=== PATIENT | male | born 1965 | race African-American/Black ===

== ENCOUNTER 2024-10-04 19:37 | Inpatient (IN) ==
[2024-10-04 20:05] LABS: iSTAT Blood Urea Nitrogen < 3 mg/dl (7-18); iSTAT Carbon Dioxide 21 mmol/L (24-31); iSTAT Chloride 97 mmol/L (101-112); iSTAT Creatinine 0.9 mg/dl (0.6-1.3); iSTAT Glucose 370 mg/dl (70-99); iSTAT Hematocrit 36 % (42-52); iSTAT Hemoglobin 12.2 g/dl (14.0-18.0); iSTAT Ionized Calcium 1.07 mmol/l (1.12-1.32); iSTAT Potassium 2.4 mmol/L (3.3-5.0); iSTAT Sodium 134 mmol/L (135-144)
[2024-10-04] MEDS: OPTIRAY 320 100ml IV ONE (20:07)
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
[2024-10-04 20:14] LABS: Hematocrit (blood only) 32.8 % (42.0-52.0); Hemoglobin 11.5 g/dl (14.0-18.0); Mean Corpuscular Hemoglobin 27.9 pg (25.0-34.0); Mean Corpuscular Hgb Conc 35.1 g/dL (32.0-36.0); Mean Corpuscular Volume 79.6 fL (80.0-100.0); Mean Platelet Volume 9.6 fL (9.4-12.4); Platelet Count 299 K/uL (130-400); RDW Coefficient of Variation 16.3 % (11.5-14.5); Red Blood Count 4.12 M/uL (4.70-6.10); White Blood Count 4.96 K/ul (4.8-10.8)
[2024-10-04] MEDS: ACETAMINOPHEN 1,000 MG/100 ML VIAL IV STA (20:20)
[2024-10-04] MEDS: SODIUM CHLORIDE 0.9% 1,000 ML IV SCH (20:20)
[2024-10-04] MEDS: ONDANSETRON INJ 2 MG/ML 2 ML VIAL IV STA (20:21)
[2024-10-04] MEDS: MoRPHine SULFATE 4 MG/ML 1 ML CARP\\VIAL IV STA (20:21)
--- NOTE | 2024-10-04 20:22 | CT Scan Report ---
CT HEAD: HISTORY: Trauma TECHNIQUE: Noncontrast CT examination of the head is performed. Coronal and sagittal reformats were created. COMPARISON: None. FINDINGS: There is no evidence of intracranial hemorrhage, focal mass effect or midline shift. No fluid collection is identified. The ventricular system is midline and symmetric. No evidence of acute major vascular territory infarction. No calvarial fracture is identified. The paranasal sinuses and mastoids are well aerated. IMPRESSION: No acute intracranial process identified. Electronically signed by Niraj Stlyes 10-04-2024 8:22 PM
[2024-10-04 20:32] LABS: Appearance Urine Clear (Clear); Bacteria Urine Automated None Seen (None Seen); Bilirubin Urine Negative (Negative); Blood Urine Trace (Negative); Cast Urine Automated 0-2 /lpf (0-2); Color Urine Yellow; Epithelial Cell Urine Auto 0-2 /hpf (0-2); Glucose Urine UA 3+ (Negative); Ketones Urine Negative (Negative); Leukocyte Esterase Urine Negative (Negative); Nitrite Urine Negative (Negative); Protein Urine Trace (Negative); RBC Urine Automated 0-2 /hpf (0-2); Specific Gravity Urine 1.012 (1.000-1.030); Urobilinogen Urine Negative (Negative); WBC Urine Automated 0-5 /hpf (0-5)
--- NOTE | 2024-10-04 20:33 | CT Scan Report ---
CT CHEST WITH CONTRAST: HISTORY: Trauma TECHNIQUE: CT of the chest was obtained with intravenous contrast. Coronal and sagittal reformats were created. IV CONTRAST: 100 mL of OMNIPAQUE 300 COMPARISON: None FINDINGS: LOWER NECK: Normal thyroid. LYMPH NODES: A few small nonenlarged lymph nodes in the mediastinum. No lymphadenopathy by size criteria. CARDIOVASCULAR: Cardiac size is normal. Coronary artery calcifications are noted. No aortic aneurysm. LUNGS: The trachea and central bronchi are widely patent. No focal confluent infiltrates are seen. There are no suspicious pulmonary nodules. PLEURA: There are no pleural effusions. There is no pneumothorax. CHEST WALL: There is a left-sided Port-A-Cath with tip in the distal SVC. OSSEOUS STRUCTURES: No acute findings IMPRESSION: No evidence of acute trauma to the thorax. Electronically signed by Niraj Styles 10-04-2024 8:32 PM
--- NOTE | 2024-10-04 20:33 | CT Scan Report ---
CT CERVICAL SPINE WITHOUT CONTRAST: HISTORY: TRAUMA TECHNIQUE: Noncontrast CT examination of the cervical spine is performed. Coronal and sagittal reformats were created. COMPARISON: None. FINDINGS: CERVICAL SPINE: There is no significant vertebral body height loss. No acute traumatic fracture identified. There is no significant spondylolisthesis. Multilevel degenerative changes characterized by disc osteophyte complex, bilateral facet and uncovertebral hypertrophy resulting and neural foraminal narrowing at multiple levels, worst at mid to lower spine. Visualized soft tissues of neck are unremarkable. IMPRESSION: No acute traumatic fracture of the cervical spine. Multilevel degenerative changes as above Electronically signed by Niraj Styles 10-04-2024 8:32 PM
[2024-10-04] MEDS: POTASSIUM CHLORIDE / WTR 10 MEQ/100 ML PLCT IV ONE ×2 (20:34→22:17)
[2024-10-04 20:37] LABS: Albumin Globulin Ratio 1.1 (0.9-2); Albumin Level 3.8 gm/dl (3.4-5.0); Bilirubin,Total 2.5 mg/dl (0.2-1.0); Calcium 9.7 mg/dl (8.6-10.3); Creatinine Clr Calc Pharmacy 92.5 ml/min; Globulin 3.6 gm/dl (2.5-4.0); Potassium 2.5 mmol/L (3.5-5.1); Total Protein 7.4 gm/dl (6.0-8.3); Troponin I High Sensitivity 27.8 pg/ml (0-20)
--- NOTE | 2024-10-04 20:39 | CT Scan Report ---
CT THORACIC and LUMBAR SPINE WITH CONTRAST: HISTORY: TRAUMA TECHNIQUE: Contrast enhanced CT examination of the thoracic and lumbar spine is performed. Coronal and sagittal reformats were created. IV CONTRAST: 100 mL Omnipaque 300 COMPARISON: None FINDINGS: THORACIC SPINE: There is no significant vertebral body height loss. No acute traumatic fracture identified. There is no significant spondylolisthesis. Usual thoracic kyphosis is preserved. Multilevel degenerative changes characterized by disc space loss with endplate changes of the vertebral bodies with small marginal osteophytes. Visualized lungs are clear. LUMBAR SPINE: There is no significant vertebral body height loss. No acute traumatic fracture identified. There is no significant spondylolisthesis. Usual lumbar lordosis is preserved. Multilevel degenerative changes characterized by disc space loss, broad based disc bulge/herniations with endplate changes of the vertebral bodies with small marginal osteophytes as well as bilateral facet hypertrophy and thickening of the ligamentum flavum resulting in crowding of the subarticular recesses and narrowing of neural foramina worst at L4-S1. IMPRESSION: No acute traumatic fracture of the thoracic and lumbar spine. Multilevel degenerative changes as above Electronically signed by Niraj Styles 10-04-2024 8:38 PM
[2024-10-04 20:42] LABS: Basophils # (auto) 0.01 K/uL (0.00-0.20); Basophils % (auto) 0.2 %; INR 1.1 (0.9-1.1); Immature Granulocytes # (auto) 0.02 K/uL (0.01-0.20); Immature Granulocytes % (auto) 0.4 %; Lymphocytes # (auto) 0.13 K/uL (1.20-3.40); Lymphocytes % (auto) 2.6 %; Monocytes # (auto) 0.24 K/uL (0.11-0.59); Monocytes % (auto) 4.8 %; Neutrophils # (auto) 4.56 K/uL (1.40-6.50); Partial Thromboplastin Ratio 1.2; Partial Thromboplastin Time 33 Seconds (21-31); Prothrombin Time 12.1 Seconds (9.0-12.0)
[2024-10-04] MEDS: CEFEPIME 2000MG 2,000 MG/20 ML SYR IV STA (20:52)
--- NOTE | 2024-10-04 20:53 | CT Scan Report ---
CT ABDOMEN and PELVIS with INTRAVENOUS CONTRAST HISTORY: Abdominal pain TECHNIQUE: CT abdomen and pelvis with contrast. IV CONTRAST: 100 mL of OMNIPAQUE 300 ENTERIC CONTRAST: Not Given COMPARISON: NONE FINDINGS: LIVER: No focal lesion identified. Hepatic steatosis and hepatomegaly. No focal hepatic lesion is identified. GALLBLADDER/BILIARY: There is a stent in the common bile duct. There is moderate intrahepatic biliary dilation. Mildly distended gallbladder without significant inflammation. SPLEEN: Unremarkable. PANCREAS: There is moderate pancreatic ductal dilatation proximal to apparently increased pancreatic soft tissues measuring approximately 4.5 cm in size (series 10, image 35). ADRENALS: Nodular thickening. KIDNEYS: Mild abnormal enhancement of the distal ureters bilaterally. No nephrolithiasis or hydronephrosis. Multiple cortical cysts in both kidneys. PERITONEUM/RETROPERITONEUM. There are mildly prominent portacaval and retroperitoneal lymph nodes. No aortic aneurysm. GASTROINTESTINAL: No obstruction. Normal appendix. Long segment wall thickening of the sigmoid colon REPRODUCTIVE: No suspicious pelvic mass identified. URINARY BLADDER: Moderate inflammation with wall thickening BONES: No acute findings. IMPRESSION: No evidence of acute trauma to the abdomen or the pelvis. Common bile duct stent in place with moderate intrahepatic biliary dilation and pancreatic ductal dilatation. There is an apparently increased pancreatic soft tissues in the head and uncinate regions measuring approximately 4.5 cm. This could represent a pancreatic neoplasm. There is no prior examination available for comparison in our system. Please correlate with medical workup to this point. Moderate inflammatory changes of the urinary bladder suggesting cystitis. Faint abnormal enhancement of the distal ureters could represent early ureteritis. Please correlate with urinalysis. Finally wall thickening of the sigmoid colon may be due to colitis Electronically signed by Niraj Styles 10-04-2024 8:53 PM
[2024-10-04] MEDS: SODIUM CHLORIDE 0.9% 1,000 ML IV ONE (21:13)
[2024-10-04 21:18] LABS: Adenovirus PCR Not Detected (NotDetected); Bordetella parapertussis PCR Not Detected (NotDetected); Bordetella pertussis PCR Not Detected (NotDetected); Chlamydia pneumoniae PCR Not Detected (NotDetected); Coronavirus 229E PCR Not Detected (NotDetected); Coronavirus CoV-2 (COVID19)PCR Not Detected (NotDetected); Coronavirus HKU1 PCR Not Detected (NotDetected); Coronavirus NL63 PCR Not Detected (NotDetected); Coronavirus OC43PCR Not Detected (NotDetected); Human Metapneumovirus PCR Not Detected (NotDetected); Influenza A PCR Not Detected (NotDetected); Influenza B PCR Not Detected (NotDetected); Mycoplasma pneumoniae PCR Not Detected (NotDetected); Parainfluenza Virus 1 PCR Not Detected (NotDetected); Parainfluenza Virus 2 PCR Not Detected (NotDetected); Parainfluenza Virus 3 PCR Not Detected (NotDetected); Parainfluenza Virus 4 PCR Not Detected (NotDetected); Respiratory Syncytial VirusPCR Not Detected (NotDetected); Rhinovirus/Enterovirus PCR DETECTED (NotDetected)
[2024-10-04] MEDS ORDERED: MoRPHine SULFATE 4 MG/ML 1 ML CARP\\VIAL IV PRN (22:05)
[2024-10-04] MEDS: LABETALOL HCL IV 5 MG/ML 20ML IV STA (22:17)
[2024-10-04] MEDS: IBUPROFEN 800 MG TAB PO STA (22:55)
[2024-10-04] MEDS ORDERED: VANCOMYCIN CONSULT ACTIVE PRN (23:01)
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
[2024-10-05] MEDS: POTASSIUM CHLORIDE CRTAB 20 MEQ TABCR PO STA ×2 (00:03→01:48)
[2024-10-05] MEDS: amLODIPine BESYLATE 5 MG TAB PO STA (00:03)
[2024-10-05] MEDS: LANTUS PER UNIT CHARGE SQ STA (00:04)
[2024-10-05] MEDS: TAMSULOSIN HCL 0.4 MG CAP PO STA (00:04)
[2024-10-05] MEDS: VANCOMYCIN HCL 2,000 MG in SODIUM CHLORIDE 0.9% 500 ML IV STA (00:04)
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
[2024-10-05] MEDS: SODIUM CHLORIDE 0.9% 1,000 ML IV SCH (01:49)
[2024-10-05] MEDS: POTASSIUM CHLORIDE / WTR 10 MEQ/100 ML PLCT IV SCH (01:49)
[2024-10-05] MEDS ORDERED: LABETALOL HCL IV 5 MG/ML 20ML IV PRN (02:42)
[2024-10-05] MEDS ORDERED: GLUCAGON FOR INJ 1 MG VIAL SQ PRN (02:42)
[2024-10-05] MEDS ORDERED: NITROGLYCERIN SL 0.4 MG/TAB TAB SL PRN (02:42)
[2024-10-05] MEDS ORDERED: GLUCOSE 40% GEL 15 GM TUBE PO PRN (02:42)
[2024-10-05] MEDS ORDERED: CARBOHYDRATES FOR HYPOGLYCEMIA PO PRN (02:42)
[2024-10-05] MEDS ORDERED: ACETAMINOPHEN 1,000 MG/100 ML VIAL IV PRN (02:42)
[2024-10-05] MEDS ORDERED: HYDROmorphone INJ 0.5 MG/0.5 ML SYR IV PRN (02:42)
[2024-10-05] MEDS ORDERED: DEXTROSE 50% 50 ML SYRINGE IV PRN (02:42)
[2024-10-05] MEDS ORDERED: ONDANSETRON INJ 2 MG/ML 2 ML VIAL IV PRN (02:42)
[2024-10-05] MEDS ORDERED: LACTULOSE SYRUP 20 GM/30 ML UDC PO PRN (03:02)
[2024-10-05] MEDS: INSULIN ASPART PER UNIT CHARGE SC SCH (03:19)
[2024-10-05] MEDS: CEFEPIME 2000MG 2,000 MG/20 ML SYR IV SCH (03:25)
[2024-10-05 03:40] LABS: Base Excess VBG -0.2 mEq/L; HCO3 VBG 24 mmol/L; Oxygen Saturation VBG 75.3 %; PCO2 VBG 37 mmHg (38-50); PO2 VBG 45 mmHg; pH VBG 7.42 (7.36-7.41)
[2024-10-05 06:04] LABS: Basophils # (auto) 0.02 K/uL (0.00-0.20); Basophils % (auto) 0.4 %; Eosinophils # (auto) 0.01 K/uL (0.00-0.50); Eosinophils % (auto) 0.2 %; Hemoglobin 9.6 g/dl (14.0-18.0); Immature Granulocytes # (auto) 0.03 K/uL (0.01-0.20); Immature Granulocytes % (auto) 0.5 %; Lymphocytes # (auto) 0.27 K/uL (1.20-3.40); Lymphocytes % (auto) 4.7 %; Mean Corpuscular Hgb Conc 35.6 g/dL (32.0-36.0); Mean Corpuscular Volume 78.7 fL (80.0-100.0); Mean Platelet Volume 8.9 fL (9.4-12.4); Monocytes # (auto) 0.48 K/uL (0.11-0.59); Monocytes % (auto) 8.4 %; Neutrophils # (auto) 4.89 K/uL (1.40-6.50); Neutrophils % (auto) 85.8 %; Platelet Count 245 K/uL (130-400); RDW Coefficient of Variation 16.1 % (11.5-14.5); RDW Standard Deviation 46.6 fL (36.4-46.3); Red Blood Count 3.43 M/uL (4.70-6.10)
[2024-10-05 08:31] LABS: Estimated Average Glucose 192 mg/dl; Hemoglobin A1C 8.3 % (4.5-5.6)
[2024-10-05] MEDS: POTASSIUM CHLORIDE 10 MEQ TABCR PO SCH (09:00)
[2024-10-05] MEDS: VANCOMYCIN HCL 1,250 MG in SODIUM CHLORIDE 0.9% 250 ML IV SCH (09:00)
[2024-10-05] MEDS: SODIUM BICARBONATE 650 MG TAB PO SCH (09:01)
[2024-10-05] MEDS: FOLIC ACID 400 MCG TAB PO SCH (09:01)
[2024-10-05] MEDS: PANTOprazole 40 MG TAB PO SCH (09:01)
[2024-10-05] MEDS: MAGNESIUM OXIDE 400 MG TAB PO SCH (09:02)
[2024-10-05] MEDS: ASPIRIN 81 MG ECTAB PO SCH (09:02)
[2024-10-05] MEDS: amLODIPine BESYLATE 5 MG TAB PO SCH (09:02)
[2024-10-05] MEDS: FAMOTIDINE 20 MG TAB PO SCH (09:09)
[2024-10-05 09:14] LABS: A calco-baum cmplx NotReported Not Detected (NotDetected); Bact fragilis Not Reported Not Detected (NotDetected); Blood Culture Id Panel See PCR Comment (NotDetected); C auris Not Reported Not Detected (NotDetected); CTX-M Resistant Gene Not Detected (NotDetected); Calbicans Not Reported Not Detected (NotDetected); Candida glabrata Not Reported Not Detected (NotDetected); Candida krusei Not Reported Not Detected (NotDetected); Cneoformans/gatti Not Reported Not Detected (NotDetected); Cparapsilosis Not Reported Not Detected (NotDetected); Ctropicalis Not Reported Not Detected (NotDetected); E cloacae compx Not Reported Not Detected (NotDetected); Efaecalis Not Reported Not Detected (NotDetected); Efaecium Not Reported Not Detected (NotDetected); Enterobacterales Not Reported DETECTED (NotDetected); Escherichia coli Not Reported DETECTED (NotDetected); H influenzae Not Reported Not Detected (NotDetected); IMP Resistant Gene Not Detected (NotDetected); K aerogenes Not Reported Not Detected (NotDetected); KPC Resistant Gene Not Detected (NotDetected); Koxytoca Not Reported Not Detected (NotDetected); Kpneumoniae grp Not Reported Not Detected (NotDetected); Lmonocyt Not Reported Not Detected (NotDetected); N meningitidis Not Reported Not Detected (NotDetected); NDM Resistant Gene Not Detected (NotDetected); OXA 48 Like Resistant Gene Not Detected (NotDetected); P aeruginosa Not Reported Not Detected (NotDetected); Proteus spp Not Reported Not Detected (NotDetected); Salmonella spp Not Reported Not Detected (NotDetected); Staph lugdunensis Not Reported Not Detected (NotDetected); Staph spp. Not Reported Not Detected (NotDetected); Staphaureus Not Reported Not Detected (NotDetected); Staphepi Not Reported Not Detected (NotDetected); Stenmaltophilia Not Reported Not Detected (NotDetected); Strep agal(GrpB) Not Reported Not Detected (NotDetected); Strep pneum Not Reported Not Detected (NotDetected); Strep pyog (GrpA) Not Reported Not Detected (NotDetected); Strep spp Not Reported Not Detected (NotDetected); VIM Resistant Gene Not Detected (NotDetected); mcr-1 Colistin Resistant Gene Not Detected (NotDetected)
[2024-10-05 09:38] LABS: Enterobacterales DETECTED (NotDetected)
[2024-10-05 09:44] LABS: Albumin Level 3.2 gm/dl (3.4-5.0); BUN Creatinine Ratio 4.8 (10-20); Bilirubin Direct 2.2 mg/dl (0-0.2); Bilirubin,Total 3.2 mg/dl (0.2-1.0); Calcium 8.7 mg/dl (8.6-10.3); Creatinine Clr Calc Pharmacy 102.1 ml/min; Magnesium 1.7 mg/dl (1.7-2.4); Phosphorus 2.6 mg/dl (2.5-4.9); Potassium 3.3 mmol/L (3.5-5.1); Total Protein 6.2 gm/dl (6.0-8.3); Troponin I High Sensitivity 31.6 pg/ml (0-20)
[2024-10-05] MEDS: POTASSIUM CHLORIDE CRTAB 20 MEQ TABCR PO SCH (10:40)
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
[2024-10-05] MEDS: POTASSIUM CHLORIDE CRTAB 20 MEQ TABCR PO ONE (17:05)
[2024-10-05] MEDS: TAMSULOSIN HCL 0.4 MG CAP PO SCH (20:31)
[2024-10-05] MEDS: LANTUS PER UNIT CHARGE SC SCH (22:08)
--- NOTE | 2024-10-06 06:40 | Electrocardiogram Report ---
Test Reason : Blood Pressure : */* mmHG Vent. Rate : 112 BPM Atrial Rate : 112 BPM P-R Int : 150 ms QRS Dur : 78 ms QT Int : 336 ms P-R-T Axes : 33 2 5 degrees QTcB Int : 458 ms Poor data quality, interpretation may be adversely affected Sinus tachycardia Otherwise normal ECG No previous ECGs available Confirmed by Kushal Doan ([id number]) on 10/06/2024 6:40:43 AM Referred By: REFERRED SELF Confirmed By: Kushal Doan
[2024-10-06 07:58] LABS: Hemoglobin 9.6 g/dl (14.0-18.0); Mean Corpuscular Hemoglobin 27.9 pg (25.0-34.0); Mean Corpuscular Hgb Conc 35.6 g/dL (32.0-36.0); Mean Corpuscular Volume 78.5 fL (80.0-100.0); Mean Platelet Volume 9.4 fL (9.4-12.4); Platelet Count 247 K/uL (130-400); RDW Coefficient of Variation 16.7 % (11.5-14.5); RDW Standard Deviation 47.6 fL (36.4-46.3); Red Blood Count 3.44 M/uL (4.70-6.10)
[2024-10-06 08:13] LABS: BUN Creatinine Ratio 6.4 (10-20); Calcium 8.8 mg/dl (8.6-10.3); Creatinine Clr Calc Pharmacy 108.6 ml/min; Magnesium 1.6 mg/dl (1.7-2.4); Phosphorus 2.1 mg/dl (2.5-4.9); Potassium 3.1 mmol/L (3.5-5.1)
[2024-10-06] MEDS: oxyCODONE HCL IR 5 MG TAB (IMMEDIATE RELEASE) PO PRN (08:19)
[2024-10-06] MEDS ORDERED: POTASSIUM PHOS 3 MMOL/1 ML INFUSION IV STA (11:37)
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
[2024-10-06] MEDS: cefTRIAXone SODIUM 2,000 MG/50 ML BAG IV SCH (12:43)
[2024-10-06] MEDS: POT PHOSPHATE MONOBASIC W/ SOD TAB PO SCH (12:43)
[2024-10-06] MEDS: MAGNESIUM SULFATE / D5W 1 GM/100 ML BAG IV SCH (13:26)
[2024-10-06] MEDS: amLODIPine BESYLATE 5 MG TAB PO ONE (17:04)
[2024-10-06] MEDS: LANTUS PER UNIT CHARGE SC SCH (20:37)
[2024-10-06] MEDS: MAGNESIUM OXIDE 400 MG TAB PO SCH (20:38)
[2024-10-06] MEDS: POTASSIUM CHLORIDE CRTAB 20 MEQ TABCR PO SCH (20:41)
[2024-10-07 07:05] LABS: Hematocrit (blood only) 27.9 % (42.0-52.0); Hemoglobin 9.8 g/dl (14.0-18.0); Mean Corpuscular Hemoglobin 27.6 pg (25.0-34.0); Mean Corpuscular Hgb Conc 35.1 g/dL (32.0-36.0); Mean Corpuscular Volume 78.6 fL (80.0-100.0); Platelet Count 273 K/uL (130-400); RDW Coefficient of Variation 16.8 % (11.5-14.5); RDW Standard Deviation 48.3 fL (36.4-46.3); Red Blood Count 3.55 M/uL (4.70-6.10); White Blood Count 3.54 K/ul (4.8-10.8)
[2024-10-07 07:26] LABS: BUN Creatinine Ratio 11.7 (10-20); Calcium 8.7 mg/dl (8.6-10.3); Magnesium 2.2 mg/dl (1.7-2.4); Potassium 3.1 mmol/L (3.5-5.1)
[2024-10-07] MEDS: amLODIPine BESYLATE 5 MG TAB PO SCH (08:38)
[2024-10-07] MEDS: ACETAMINOPHEN 325 MG TAB PO PRN (08:43)
[2024-10-07 11:42] LABS: Adenovirus F 40/41 PCR Not Detected (NotDetected); Astrovirus PCR Not Detected (NotDetected); Campylobacter PCR Not Detected (NotDetected); Cryptosporidium PCR Not Detected (NotDetected); Cyclospora cayetanensis PCR Not Detected (NotDetected); Entamoeba histolytica PCR Not Detected (NotDetected); Enteroaggregative E.coli(EAEC) Not Detected (NotDetected); Enteropathogenic E.coli (EPEC) Not Detected (NotDetected); Enterotoxigenic E.coli (ETEC) Not Detected (NotDetected); Giardia lamblia PCR Not Detected (NotDetected); Norovirus GI/GII PCR Not Detected (NotDetected); Plesiomonas shigelloides PCR Not Detected (NotDetected); Rotavirus A PCR Not Detected (NotDetected); Salmonella PCR Not Detected (NotDetected); Sapovirus PCR Not Detected (NotDetected); Shiga-like Toxin E.coli (STEC) Not Detected (NotDetected); Shigella/Enteroinvasive E.coli Not Detected (NotDetected); Vibrio cholerae PCR Not Detected (NotDetected); Vibrio species PCR Not Detected (NotDetected); Yersinia enterocolitica PCR Not Detected (NotDetected)
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
[2024-10-07] MEDS: POTASSIUM CHLORIDE CRTAB 20 MEQ TABCR PO SCH (13:07)
[2024-10-07] MEDS: CELECOXIB 100 MG CAP PO PRN (20:29)
[2024-10-07] MEDS: ACETAMINOPHEN 1,000 MG/100 ML VIAL IV STA (20:39)
[2024-10-07] MEDS: NSS + 20MEQ KCL 20 MEQ/1,000 ML BAG IV ONE (21:13)
[2024-10-07] MEDS: oxyCODONE HCL IR 5 MG TAB (IMMEDIATE RELEASE) PO PRN (22:23)
[2024-10-07] MEDS: KETOROLAC TROMETHAMINE 15 MG/ML VIAL IV ONE (22:43)
[2024-10-07 22:55] LABS: Albumin Level 3.1 gm/dl (3.4-5.0); Bilirubin Direct 3.3 mg/dl (0-0.2); Chol HDL Ratio 16.9 (0-5); Total Protein 6.3 gm/dl (6.0-8.3)
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
--- NOTE | 2024-10-08 00:42 | Communication Note ---
Date of Service: October 08, 2024 Patient with fever overnight. Worsening headache and right flank pain symptoms. LFTs persistently abnormal
[2024-10-08] MEDS: OPTIRAY 320 100ml IV ONE (01:00)
--- NOTE | 2024-10-08 02:12 | CT Scan Report ---
EXAM: CT abd pelvis IV con only CLINICAL HISTORY: worsening flank pain TECHNIQUE: Contiguous axial images were obtained from the level of the diaphragm to the pubic symphysis with intravenous contrast. Coronal and sagittal reconstructions were likewise performed and indicated to increase the sensitivity for detecting clinically relevant pathology. If IV contrast material had not been administered, the likelihood of detecting abnormalities relevant to the patient's condition would have been substantially decreased. CT scan was performed according to ALARA (as low as reasonable achievable). COMPARISON: 10/04/2024 19:03:00 BRIGHT CUTTER FINDINGS: The visualized lung bases are clear. The liver is normal in size and attenuation. No focal liver lesions are seen. Mild dilatation of intra and extrahepatic biliary ducts and pancreatic duct( diameter~ 6 mm). Stent is seen in common bile duct. Hepatic vasculature is patent. The gallbladder is present. The spleen, pancreas, and adrenal glands are unremarkable. The kidneys are normal in size and attenuation. There is no hydronephrosis or perinephric fat stranding. No renal calculi or renal masses are identified. Stable bilateral renal cortical cyst - largest measures about 6 cm on right side and 5.5 cm on left side. The ureters are normal in caliber and no ureteral calculi are seen. The bladder is normal in contour. Pelvic viscera are unremarkable. No focal or diffuse bowel wall thickening or evidence of bowel obstruction is identified. The appendix is visualized in the right lower quadrant and appears within normal limits. Abdominal and pelvic vasculature is patent. No adenopathy or fluid collections are seen. No aggressive appearing osseous lesions are identified. IMPRESSION: 1. Mild dilatation of intra and extrahepatic biliary ducts and pancreatic duct( diameter~ 6 mm).-stable. 2. Stent is seen in common bile duct.-stable. 3. Stable bilateral renal cortical cyst. 4. Hepatic steatosis. -stable. 5. No other new interval abnormality since prior study. Electronically signed by Beau Blakcman 10-08-2024 02:11 AM
[2024-10-08 06:43] LABS: Basophils # (auto) 0.01 K/uL (0.00-0.20); Basophils % (auto) 0.2 %; Eosinophils # (auto) 0.05 K/uL (0.00-0.50); Hematocrit (blood only) 27.3 % (42.0-52.0); Hemoglobin 9.5 g/dl (14.0-18.0); Immature Granulocytes # (auto) 0.06 K/uL (0.01-0.20); Immature Granulocytes % (auto) 1.2 %; Lymphocytes # (auto) 0.26 K/uL (1.20-3.40); Lymphocytes % (auto) 5.2 %; Mean Corpuscular Hemoglobin 27.5 pg (25.0-34.0); Mean Corpuscular Hgb Conc 34.8 g/dL (32.0-36.0); Mean Corpuscular Volume 79.1 fL (80.0-100.0); Mean Platelet Volume 9.3 fL (9.4-12.4); Monocytes % (auto) 8.1 %; Neutrophils # (auto) 4.18 K/uL (1.40-6.50); Neutrophils % (auto) 84.3 %; Platelet Count 263 K/uL (130-400); RDW Coefficient of Variation 16.6 % (11.5-14.5); RDW Standard Deviation 47.5 fL (36.4-46.3); Red Blood Count 3.45 M/uL (4.70-6.10); White Blood Count 4.96 K/ul (4.8-10.8)
[2024-10-08 07:33] LABS: Alanine Aminotransferase 130 U/L (7-52); Alkaline Phosphatase 330 U/L (34-104); Anion Gap 6 (3-11); Aspartate Aminotransferase 155 U/L (13-39); BUN Creatinine Ratio 11.9 (10-20); Bilirubin Direct 4.3 mg/dl (0-0.2); Bilirubin,Total 6.5 mg/dl (0.2-1.0); Blood Urea Nitrogen 10 mg/dl (6-23); Calcium 8.8 mg/dl (8.6-10.3); Carbon Dioxide 23 mmol/L (21-32); Chloride 103 mmol/L (98-107); Creatinine Clr Calc Pharmacy 100.8 ml/min; Glucose 91 mg/dl (70-99(Fasting)); Lipase < 3 U/L (11-82); Potassium 4.5 mmol/L (3.5-5.1); Sodium 132 mmol/L (136-145); Total Protein 6.2 gm/dl (6.0-8.3)
[2024-10-08] MEDS: LANTUS PER UNIT CHARGE SQ SCH (08:24)
[2024-10-08 09:57] LABS: BUN Creatinine Ratio 12.2 (10-20); Calcium 8.5 mg/dl (8.6-10.3); Creatinine Clr Calc Pharmacy 103.3 ml/min; Potassium 4.4 mmol/L (3.5-5.1)
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
[2024-10-08] MEDS: carvediloL 3.125 MG TAB PO SCH (18:20)
[2024-10-08] MEDS ORDERED: CIPROFLOXACIN / D5W 400 MG/200 ML BAG IV SCH (19:30)
[2024-10-08] MEDS: OPTIRAY 320 125ml IV ONE (19:54)
[2024-10-08 21:28] LABS: Appearance Urine Clear (Clear); Bacteria Urine Automated None Seen (None Seen); Bilirubin Urine 1+ (Negative); Blood Urine Negative (Negative); Cast Urine Automated 0-2 /lpf (0-2); Color Urine Dark Yellow; Epithelial Cell Urine Auto 0-2 /hpf (0-2); Glucose Urine UA Negative (Negative); Ketones Urine Negative (Negative); Leukocyte Esterase Urine Negative (Negative); Nitrite Urine Negative (Negative); Protein Urine Trace (Negative); RBC Urine Automated 0-2 /hpf (0-2); Specific Gravity Urine > 1.045 (1.000-1.030); Urobilinogen Urine Negative (Negative); WBC Urine Automated 0-5 /hpf (0-5)
[2024-10-08 22:16] LABS: Urine Potassium 15.2 mmol/L
--- NOTE | 2024-10-08 22:20 | CT Scan Report ---
Exam(s): CTA CHEST IV Amt: 115 ml optiray 320 EXAM: CT Angiography Chest With Intravenous Contrast CLINICAL HISTORY: Reason for exam: PE. TECHNIQUE: Axial computed tomographic angiography images of the chest with intravenous contrast. CTDI is 32 mGy and DLP is 839.94 mGy-cm. Automated exposure control was utilized for the study. A dose lowering technique was utilized adhering to the principles of ALARA. MIP reconstructed images were created and reviewed. COMPARISON: 10/04/2024 FINDINGS: Pulmonary arteries: The pulmonary arterial tree is well opacified with contrast. No pulmonary emboli are identified. Aorta: No acute findings. No thoracic aortic aneurysm. Lungs: Unremarkable. No mass. No consolidation. Pleural space: Unremarkable. No significant effusion. No pneumothorax. Heart: Unremarkable. No cardiomegaly. No significant pericardial effusion. No evidence of RV dysfunction. Bones/joints: Mild multilevel degenerative changes throughout the thoracic spine. No fracture or bone lesion is identified. No dislocation. Soft tissues: Unremarkable. Lymph nodes: Unremarkable. No enlarged lymph nodes. Gallbladder and bile ducts: Partial visualization of a metallic stent in the common bile duct. Mild intrahepatic biliary duct dilation. Tubes, lines and devices: There is a Port-A-Cath on the left with the catheter tip extending to the superior vena cava. IMPRESSION: 1. The pulmonary arterial tree is well opacified with contrast. No pulmonary emboli are identified. 2. Partial visualization of a metallic stent in the common bile duct. Mild intrahepatic biliary duct dilation. Electronically signed by: Tung Huerta MD 10/08/24 22:19 PM
[2024-10-09] MEDS: HEPARIN 100 UNIT/ML 5ML FLUSH FLUSH PRN (07:51)
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
[2024-10-09 08:33] LABS: Hemoglobin 9.7 g/dl (14.0-18.0); Mean Corpuscular Hemoglobin 27.8 pg (25.0-34.0); Mean Corpuscular Hgb Conc 35.9 g/dL (32.0-36.0); Mean Corpuscular Volume 77.4 fL (80.0-100.0); Mean Platelet Volume 9.8 fL (9.4-12.4); Platelet Count 290 K/uL (130-400); RDW Coefficient of Variation 16.4 % (11.5-14.5); RDW Standard Deviation 46.2 fL (36.4-46.3); Red Blood Count 3.49 M/uL (4.70-6.10); White Blood Count 6.06 K/ul (4.8-10.8)
[2024-10-09 08:55] LABS: BUN Creatinine Ratio 10.7 (10-20); Magnesium 1.9 mg/dl (1.7-2.4); Potassium 4.4 mmol/L (3.5-5.1)
[2024-10-09 10:19] LABS: Albumin Level 3.1 gm/dl (3.4-5.0); Bilirubin Direct 4.3 mg/dl (0-0.2); Bilirubin,Total 6.6 mg/dl (0.2-1.0); Total Protein 6.3 gm/dl (6.0-8.3)
[2024-10-09] MEDS: UREA (UREA-NA) 15 GM PACK PO SCH (11:40)
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
[2024-10-09] MEDS: CIPROFLOXACIN 500 MG TAB PO SCH (15:23)
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
[2024-10-09] MEDS: GLUCOSE 10 TAB/TUBE PO PRN (17:16)
[2024-10-09 17:24] LABS: BUN Creatinine Ratio 16.9 (10-20); Calcium 9.1 mg/dl (8.6-10.3); Potassium 4.7 mmol/L (3.5-5.1)
[2024-10-09] MEDS: carvediloL 6.25 MG TAB PO SCH (17:49)
[2024-10-10 07:10] LABS: Hematocrit (blood only) 27.8 % (42.0-52.0); Hemoglobin 9.6 g/dl (14.0-18.0); Mean Corpuscular Hemoglobin 27.4 pg (25.0-34.0); Mean Corpuscular Hgb Conc 34.5 g/dL (32.0-36.0); Mean Corpuscular Volume 79.2 fL (80.0-100.0); Mean Platelet Volume 9.2 fL (9.4-12.4); Platelet Count 297 K/uL (130-400); RDW Coefficient of Variation 17.3 % (11.5-14.5); Red Blood Count 3.51 M/uL (4.70-6.10); White Blood Count 6.25 K/ul (4.8-10.8)
[2024-10-10 07:23] LABS: Albumin Level 3.2 gm/dl (3.4-5.0); BUN Creatinine Ratio 13.6 (10-20); Bilirubin,Total 6.2 mg/dl (0.2-1.0); Calcium 9.3 mg/dl (8.6-10.3); Creatinine Clr Calc Pharmacy 96.3 ml/min; Globulin 3.3 gm/dl (2.5-4.0); Phosphorus 3.4 mg/dl (2.5-4.9); Potassium 5.2 mmol/L (3.5-5.1); Total Protein 6.5 gm/dl (6.0-8.3)
[2024-10-10] MEDS: LANTUS PER UNIT CHARGE SQ SCH (09:28)
--- NOTE | 2024-10-10 12:09 | Nephrology Progress Note ---
Date of Service October 10, 2024 Assessment & Plan Admission and Anticipated Discharge Date Admission Date: October 04, 2024 Subjective Assessment & Plan (1) Electrolyte abnormality: patient had hypokalemia which has resolved but now has hyponatremia. During this hospital admission itself he had sodium as high as 143 but since then has been steadily dropping and this morning it was 130. he says he is not eating much he is drinking a lot of fluid. he appears euvolemic. no edema. Serum osmolarity was slightly low at 275 yesterday and urine Osmo was 387--- when the serum sodium was 132. also worth noting that his urine dipstick was highly concentrated with a high specific gravity--signifying vol depletion. so at this point he has a new onset hyponatremia of unclear etiology Now K is high at 5.2 so d/c po kcl. Also Will repeat urine osm,serum osm and UA for sp gravity--will decide about ivf and lasix after the results. Call with results till then continue urea and FFR of 1500 ml /day. (2) E coli bacteremia: currently being treated. Recently had a biliary stent in his likely related with that. reviewed Infectious Disease consultation note and in agreement S---- Patient seemed very depressed and did not speak much. However he denies any acute complaints. Most of the history is reviewed from the chart. review of systems 12 systems reviewed and otherwise negative. physical examination awake alert oriented x3 mucous membrane moist neck is supple no jugular venous distention. chest bilateral clear to auscultation CVS S1-S2 regular abdomen is soft nontender extremities without edema Results & Data Vital Signs (Past 12 Hours) Vital Signs Temp Pulse Resp BP Pulse Ox O2 Del Method 10/10/24 08:01 36.8 C 91 H 18 138/89 98 Room Air
[2024-10-10] MEDS: HYDROmorphone INJ 1 MG/ML SYRINGE IV PRN (12:14)
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
[2024-10-10 16:03] LABS: Albumin Level 3.3 gm/dl (3.4-5.0); BUN Creatinine Ratio 12.1 (10-20); Calcium 9.2 mg/dl (8.6-10.3); Creatinine Clr Calc Pharmacy 93.1 ml/min; Phosphorus 3.9 mg/dl (2.5-4.9); Potassium 4.7 mmol/L (3.5-5.1)
[2024-10-10 16:07] LABS: Appearance Urine Clear (Clear); Bacteria Urine Automated None Seen (None Seen); Bilirubin Urine 2+ (Negative); Blood Urine Negative (Negative); Cast Urine Automated 0-2 /lpf (0-2); Color Urine Dark Yellow; Epithelial Cell Urine Auto 0-2 /hpf (0-2); Glucose Urine UA Negative (Negative); Ketones Urine Negative (Negative); Leukocyte Esterase Urine Trace (Negative); Nitrite Urine Negative (Negative); Protein Urine 1+ (Negative); RBC Urine Automated 0-2 /hpf (0-2); Specific Gravity Urine 1.019 (1.000-1.030); Urobilinogen Urine Negative (Negative); WBC Urine Automated 0-5 /hpf (0-5); pH Urine 6.5 (4.5-7.5)
[2024-10-10] MEDS: UREA (UREA-NA) 15 GM PACK PO SCH (20:13)
[2024-10-10] MEDS: FUROSEMIDE 40 MG/4 ML VIAL IV SCH (20:15)
[2024-10-10] MEDS: SODIUM CHLORIDE 0.9% 1,000 ML IV SCH (20:15)
[2024-10-11 07:32] LABS: Hematocrit (blood only) 26.9 % (42.0-52.0); Hemoglobin 9.6 g/dl (14.0-18.0); Mean Corpuscular Hemoglobin 27.7 pg (25.0-34.0); Mean Corpuscular Hgb Conc 35.7 g/dL (32.0-36.0); Mean Corpuscular Volume 77.7 fL (80.0-100.0); Mean Platelet Volume 10.2 fL (9.4-12.4); Platelet Count 340 K/uL (130-400); RDW Coefficient of Variation 16.5 % (11.5-14.5); RDW Standard Deviation 46.3 fL (36.4-46.3); Red Blood Count 3.46 M/uL (4.70-6.10); White Blood Count 6.37 K/ul (4.8-10.8)
[2024-10-11 08:00] LABS: Albumin Level 3.3 gm/dl (3.4-5.0); BUN Creatinine Ratio 15.2 (10-20); Bilirubin Direct 4.6 mg/dl (0-0.2); Bilirubin,Total 7.2 mg/dl (0.2-1.0); Calcium 9.1 mg/dl (8.6-10.3); Creatinine Clr Calc Pharmacy 92.1 ml/min; Potassium 4.5 mmol/L (3.5-5.1); Total Protein 6.7 gm/dl (6.0-8.3)
[2024-10-11] MEDS: ADVANCED PROBIOTIC 625 MG CAPSULE PO SCH (08:26)
[2024-10-11] MEDS: ENOXAPARIN INJ 40 MG/0.4 ML SYR SQ SCH (08:26)
--- NOTE | 2024-10-11 11:11 | Ultrasound Report ---
US liver CLINICAL HISTORY: worsening transaminitis, pancreatic cancer COMPARISON STUDY: 10/08/2024 CT FINDINGS: There is an ill-defined approximately 4 cm hypoechoic mass at the head of the pancreas cons istent with given history of pancreatic cancer. There is stable pancreatic ductal dilatation measurin g up to 8 mm diameter. There is stable biliary dilatation with the common duct measuring up to 1.5 cm diameter. The common bile duct stent is partially visualized. Liver demonstrates mild diffusely incr eased echogenicity, possible mild fatty liver. No focal liver abnormality seen. There is normal direc tion of flow in the portal vein. There is gallbladder sludge and the gallbladder is distended, stable . There is no gallbladder wall thickening. No pericholecystic fluid or ascites. There are multiple st able cysts at the right kidney measuring up to 7 cm. No hydronephrosis is seen. IMPRESSION: 1. Stable biliary and pancreatic ductal dilatation. 2. Otherwise as described. ACT 112: Negative or not required by law. Electronically signed by: Elias Barrett M.D. 10/11/2024 11:10 AM
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
--- NOTE | 2024-10-11 14:09 | Nephrology Progress Note ---
Date of Service October 11, 2024 Assessment & Plan Admission and Anticipated Discharge Date Admission Date: October 04, 2024 Subjective Assessment & Plan (1) Electrolyte abnormality: patient had hypokalemia which has resolved but now has hyponatremia. During this hospital admission itself he had sodium as high as 143 but since then has been steadily dropping and this morning it was 130. he says he is not eating much he is drinking a lot of fluid. he appears euvolemic. no edema. Serum osmolarity was slightly low at 275 yesterday and urine Osmo was 387--- when the serum sodium was 132. also worth noting that his urine dipstick was highly concentrated with a high specific gravity--signifying vol depletion. so at this point he has a new onset hyponatremia of unclear etiology Did repeat urine osm,serum osm and UA for sp gravity--na was 126 PM yesterday and then with NS and lasix went to 128 this AM. for now continue same at least till tomorrow. till then continue urea and FFR of 1500 ml /day. Given Sig LFT issues not planning to use tolvaptan (2) E coli bacteremia: currently being treated. Recently had a biliary stent in his likely related with that. reviewed Infectious Disease consultation note and in agreement. also noted worsening LFT and Liver US. S---- Patient seemed very depressed and did not speak much. However he denies any acute complaints. Most of the history is reviewed from the chart. review of systems 12 systems reviewed and otherwise negative. physical examination awake alert oriented x3 mucous membrane moist neck is supple no jugular venous distention. chest bilateral clear to auscultation CVS S1-S2 regular abdomen is soft nontender extremities without edema Results & Data Vital Signs (Past 12 Hours) Vital Signs Temp Pulse Resp BP Pulse Ox O2 Del Method 10/11/24 07:27 36.8 C 107 H 18 129/89 99 Room Air
[2024-10-11] MEDS: ACETAMINOPHEN 325 MG TAB PO PRN (21:24)
[2024-10-12 08:01] LABS: Hematocrit (blood only) 24.8 % (42.0-52.0); Hemoglobin 8.6 g/dl (14.0-18.0); Mean Corpuscular Hemoglobin 27.4 pg (25.0-34.0); Mean Corpuscular Hgb Conc 34.7 g/dL (32.0-36.0); Mean Platelet Volume 10.2 fL (9.4-12.4); Platelet Count 323 K/uL (130-400); RDW Standard Deviation 48.5 fL (36.4-46.3); Red Blood Count 3.14 M/uL (4.70-6.10); White Blood Count 5.45 K/ul (4.8-10.8)
[2024-10-12 08:19] LABS: BUN Creatinine Ratio 16.3 (10-20); Bilirubin,Total 7.3 mg/dl (0.2-1.0); Calcium 8.4 mg/dl (8.6-10.3); Creatinine Clr Calc Pharmacy 98.5 ml/min; Globulin 3.1 gm/dl (2.5-4.0); Potassium 3.9 mmol/L (3.5-5.1); Total Protein 6.1 gm/dl (6.0-8.3)
--- NOTE | 2024-10-12 11:22 | Nephrology Progress Note ---
Date of Service October 12, 2024 Assessment & Plan (1) Electrolyte abnormality: Plan: now resolved hypokalemia New and plateau'd/worse hyponatremia, etiology unclear. presented w/ sNa 133 10/04 ; peaked at 143 (??error?) 10/05; then 137 next day and steady down trend to yanci 126 on 10/10, serum sodium 127 today. he says he is not eating much; he is drinking a lot of fluid. he appears euvolemic. no edema. Serum osmolarity was slightly low at 275 and urine Osmo was 389 on 10/08 --- when the serum sodium was 132 and urine sg > 1045, Jaz/Cl in 80s. Repeat urine studies 10/10 w/ sg 1019 and uOsms 600. >stopped NS at 100 mL hourly >continue lasix 40 mg IV q8h and urea 30 gm bid -on FR 1.5L -on sodium bicarb prn celebrex >> last used 10/07 >> have stopped this Given Sig LFT issues not planning to use tolvaptan (2) E coli bacteremia: Plan: on cipro; presented 10/04 w/ 4/4 + blood cxs; f/u cxs 10/09 NGTD Admission and Anticipated Discharge Date Admission Date: October 04, 2024 Subjective ongoing pain RUQ w/ stent; feels his balance challenges a bit owrse; stable chornic sob; ongoing poor po Review of Systems 2 Review of Systems: All systems reviewed & are unremarkable except as noted in Subjective Physical Exam 2 Constitutional: well developed and well nourished Eyes: EOM intact bilaterally ENMT: Mouth: + dry oral mucous membranes Respiratory: normal respiratory effort Auscultation: + diminished lung sounds Cardiovascular: RRR, no murmur, no edema Gastrointestinal (Abdomen): Inspection/Auscultation: normal bowel sounds P ercussion/Palpation: + abdomen tender (RUQ to moderate palp) and abdomen soft; no guarding Musculoskeletal: Extremities: strength 5/5 throughout Skin: no rashes, warm and dry Neurologic: landrum, fluent speech, no tremor Results & Data Vital Signs (Past 12 Hours) Vital Signs Temp Pulse Resp BP Pulse Ox O2 Del Method 10/12/24 08:00 Room Air 10/12/24 07:42 36.6 C 91 H 16 112/75 98 Room Air Laboratory Results 10/12/24 07:36 10/12/24 07:36
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
[2024-10-13 07:25] LABS: Albumin Level 3.2 gm/dl (3.4-5.0); Bilirubin,Total 8.8 mg/dl (0.2-1.0); Calcium 8.6 mg/dl (8.6-10.3); Potassium 3.8 mmol/L (3.5-5.1)
[2024-10-13 07:31] LABS: BUN Creatinine Ratio 12.1 (10-20); Creatinine Clr Calc Pharmacy 79.2 ml/min; Globulin 3.2 gm/dl (2.5-4.0); Total Protein 6.4 gm/dl (6.0-8.3)
--- NOTE | 2024-10-13 08:20 | Nephrology Progress Note ---
Date of Service October 13, 2024 Assessment & Plan (1) Electrolyte abnormality: Plan: now resolved hypokalemia New (this admission) and today slightly improved hyponatremia, etiology unclear. presented w/ sNa 133 10/04 ; peaked at 143 (??error?) 10/05; then 137 next day and steady down trend to yanci 126 on 10/10, serum sodium 129 today. he says he is not eating much; he had been drinking a lot of fluid. he appears euvolemic. no edema. moderate but stable transaminitis Serum osmolarity was slightly low at 275 and urine Osmo was 389 on 10/08 --- when the serum sodium was 132 and urine sg > 1045, Jaz/Cl in 80s. Repeat urine studies 10/10 w/ sg 1019 and uOsms 600. >continue lasix 40 mg IV q8h (retimed so as not to disturb sleep) and urea 30 gm bid -on FR 1.5L -protein shakes do not count toward fluid limit >>stopped sodium bicarb >>lowered mag ox to 200 mg daily -continue nsaid avoidance Given Sig LFT issues not planning to use tolvaptan >asked dietary to review diet w/ pt for protein rich foods he can eat > food must be affordable, accessible, appealing to him >> target intake 90 gm protein daily NEPHRO D/C RECS (will continue to follow while in house; for transfer to another facility) DX: euvolemic hyponatremia RX: -furosemide 40 mg IV q8h timed so as not to disturb sleep -urea 30 gm bid po -potassium 20 mEq bid -salt tablet 1 gm bid -do not d/c on sodium bicarbonate -continue daily po magnesium 250 mg daily OTHER POST D/C CARE: -suggest PCP or OP nephro in [place] or oncology follow BMP w/ magnesium q Mon, Thurs x 3 wks -continue fluid limit 1.5 L daily -target 90 gm daily protein intake -protein shakes do NOT count toward fluid limit -avoid nsaids -control nausea and pain, both of which can stimulate ADH release/worsen hyponatremia F/U APPTs: -he already follows w/ Dr Elizabeth Kemp, 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 for further eval /tx of possible biliary stent malfunction >> awaiting bed. pt states had severe RUQ pain sharp stabbing ON, worst this admission; RUQ pain better now. noting more pain base of neck. no focal numbness/weakness, no sob, no ascites, no edema; struggling w/ po still Review of Systems 2 Review of Systems: All systems reviewed & are unremarkable except as noted in Subjective Physical Exam 2 Constitutional: well developed, well nourished and cooperative; no acute distress Eyes: EOM intact bilaterally ENMT: Mouth: + dry oral mucous membranes Respiratory: normal respiratory effort Auscultation: + diminished lung sounds Cardiovascular: RRR, no murmur, no edema Gastrointestinal (Abdomen): Inspection/Auscultation: normal bowel sounds P ercussion/Palpation: + abdomen tender (RUQ to moderate palp) and abdomen soft; no guarding Musculoskeletal: Extremities: strength 5/5 throughout Skin: no rashes, warm and dry Results & Data Vital Signs (Past 12 Hours) Vital Signs Temp Pulse Resp BP BP Pulse Ox O2 Del Method 10/13/24 07:22 36.9 C 90 16 116/78 98 Room Air 10/12/24 21:41 36.8 C 79 16 116/78 98 Room Air Laboratory Results 10/12/24 07:36 10/13/24 06:19
[2024-10-13] MEDS: FUROSEMIDE 40 MG/4 ML VIAL IV SCH ×2 (08:32→14:36)
[2024-10-13] MEDS: MAGNESIUM OXIDE 400 MG TAB PO SCH (08:35)
[2024-10-14 05:09] LABS: Hematocrit (blood only) 22.5 % (42.0-52.0); Hemoglobin 7.8 g/dl (14.0-18.0); Mean Corpuscular Hemoglobin 27.5 pg (25.0-34.0); Mean Corpuscular Hgb Conc 34.7 g/dL (32.0-36.0); Mean Corpuscular Volume 79.2 fL (80.0-100.0); Mean Platelet Volume 10.3 fL (9.4-12.4); Platelet Count 337 K/uL (130-400); RDW Coefficient of Variation 17.2 % (11.5-14.5); RDW Standard Deviation 49.3 fL (36.4-46.3); Red Blood Count 2.84 M/uL (4.70-6.10); White Blood Count 7.08 K/ul (4.8-10.8)
[2024-10-14 05:17] LABS: Albumin Globulin Ratio 0.8 (0.9-2); Albumin Level 2.9 gm/dl (3.4-5.0); BUN Creatinine Ratio 16.4 (10-20); Bilirubin,Total 10.3 mg/dl (0.2-1.0); Calcium 8.9 mg/dl (8.6-10.3); Globulin 3.6 gm/dl (2.5-4.0); Potassium 3.6 mmol/L (3.5-5.1); Total Protein 6.5 gm/dl (6.0-8.3)
[2024-10-14] MEDS: FUROSEMIDE 40 MG/4 ML VIAL IV SCH (06:26)
--- NOTE | 2024-10-14 09:02 | Nephrology Progress Note ---
Date of Service October 14, 2024 Assessment & Plan (1) Electrolyte abnormality: Plan: recurring hypokalemia New (this admission) and today plateau'd hyponatremia, etiology unclear. presented w/ sNa 133 10/04 ; peaked at 143 (??error?) 10/05; then 137 next day and steady down trend to yanci 126 on 10/10, serum sodium plateaud at 129 today. he says he is not eating much; he had been drinking a lot of fluid. he appears euvolemic. no edema. moderate but stable transaminitis Serum osmolarity was slightly low at 275 and urine Osmo was 389 on 10/08 --- when the serum sodium was 132 and urine sg > 1045, Jaz/Cl in 80s. Repeat urine studies 10/10 w/ sg 1019 and uOsms 600. >continue lasix 40 mg IV q8h (retimed so as not to disturb sleep) and urea 30 gm bid -on FR 1.5L -protein shakes do not count toward fluid limit >>stopped sodium bicarb >>>>started K 40 mEq bid first dose now >>lowered mag ox to 200 mg daily -continue nsaid avoidance Given Sig LFT issues not planning to use tolvaptan >appreciate pit recorder work w/ pt for protein rich foods he can eat > food must be affordable, accessible, appealing to him >> target intake 90 gm protein daily NEPHRO D/C RECS (will continue to follow while in house; for transfer to another facility) DX: euvolemic hyponatremia RX: -furosemide 40 mg IV q8h timed so as not to disturb sleep -urea 30 gm bid po -potassium 20 mEq bid -salt tablet 1 gm bid -do not d/c on sodium bicarbonate -continue daily po magnesium 250 mg daily OTHER POST D/C CARE: -suggest PCP or OP nephro in [place] or oncology follow BMP w/ magnesium q Mon, Thurs x 3 wks -continue fluid limit 1.5 L daily -target 90 gm daily protein intake -protein shakes do NOT count toward fluid limit -avoid nsaids -control nausea and pain, both of which can stimulate ADH release/worsen hyponatremia F/U APPTs: -he already follows w/ Dr Elizabeth Kemp, senior sql database developer in [place] area; suggest post [facility] hospital d/c f/u appt w/ her 2-3 wks post [facility] d/c (2) E coli bacteremia: Plan: on cipro; presented 10/04 w/ 4/4 + blood cxs; f/u cxs 10/09 NGTD (3) Acquired hyperbilirubinemia: Plan: T bili up to 10.3 today Admission and Anticipated Discharge Date Admission Date: October 04, 2024 Subjective no acute interval clinical events. slept ok; denies worsening RUQ pain or sob or n/v. no edema. Review of Systems 2 Review of Systems: All systems reviewed & are unremarkable except as noted in Subjective Physical Exam 2 Constitutional: well developed, well nourished and cooperative; no acute distress Eyes: EOM intact bilaterally; sclerae not anicteric ENMT: Mouth: + dry oral mucous membranes Respiratory: normal respiratory effort Auscultation: + diminished lung sounds Cardiovascular: RRR, no murmur, no edema Gastrointestinal (Abdomen): Inspection/Auscultation: normal bowel sounds P ercussion/Palpation: + abdomen tender (RUQ to moderate palp) and abdomen soft; no guarding Musculoskeletal: Extremities: strength 5/5 throughout Skin: no rashes, warm and dry Results & Data Vital Signs (Past 12 Hours) Vital Signs Temp Pulse Resp BP Pulse Ox O2 Del Method 10/14/24 07:49 36.5 C 81 18 109/71 98 Room Air Laboratory Results 10/14/24 04:31 10/14/24 04:31
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
[2024-10-14] MEDS: HYDROmorphone INJ 1 MG/ML SYRINGE IV STA (15:00)
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
[2024-10-14] MEDS: LIDOCAINE 5% 1 PATCH TD SCH (16:12)
[2024-10-14] MEDS: POTASSIUM CHLORIDE CRTAB 20 MEQ TABCR PO SCH (21:09)
[2024-10-14] MEDS: BACLOFEN 10 MG TAB PO PRN (21:10)
[2024-10-15 07:11] LABS: Basophils # (auto) 0.02 K/uL (0.00-0.20); Basophils % (auto) 0.3 %; Eosinophils % (auto) 1.6 %; Hematocrit (blood only) 21.5 % (42.0-52.0); Hemoglobin 7.5 g/dl (14.0-18.0); Immature Granulocytes % (auto) 3.1 %; Lymphocytes # (auto) 0.32 K/uL (1.20-3.40); Mean Corpuscular Hemoglobin 27.6 pg (25.0-34.0); Mean Corpuscular Hgb Conc 34.9 g/dL (32.0-36.0); Mean Platelet Volume 10.6 fL (9.4-12.4); Monocytes # (auto) 0.62 K/uL (0.11-0.59); Monocytes % (auto) 9.7 %; Neutrophils # (auto) 5.16 K/uL (1.40-6.50); Neutrophils % (auto) 80.3 %; Platelet Count 354 K/uL (130-400); Red Blood Count 2.72 M/uL (4.70-6.10); White Blood Count 6.42 K/ul (4.8-10.8)
[2024-10-15 07:32] LABS: Hypochromasia Present; Target Cells 2+
[2024-10-15 07:33] LABS: Albumin Globulin Ratio 0.9 (0.9-2); BUN Creatinine Ratio 16.4 (10-20); Bilirubin,Total 9.7 mg/dl (0.2-1.0); Calcium 8.9 mg/dl (8.6-10.3); Globulin 3.4 gm/dl (2.5-4.0); Potassium 3.8 mmol/L (3.5-5.1); Total Protein 6.4 gm/dl (6.0-8.3)
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
[2024-10-16 06:06] VITALS: BP 123/81; PULSE 86; RESP 18; TEMP 97.7; O2SAT 100
--- NOTE | 2024-10-16 07:12 | Nephrology Progress Note ---
Date of Service October 16, 2024 Assessment & Plan (1) Electrolyte abnormality: Plan: recurring hypokalemia New (this admission) and today plateau'd hyponatremia, etiology unclear. presented w/ sNa 133 10/04 ; peaked at 143 (??error?) 10/05; then 137 next day and steady down trend to yanci 126 on 10/10, serum sodium plateaud at 129 today. he says he is not eating much; he had been drinking a lot of fluid. he appears euvolemic. no edema. moderate but stable transaminitis Serum osmolarity was slightly low at 275 and urine Osmo was 389 on 10/08 --- when the serum sodium was 132 and urine sg > 1045, Jaz/Cl in 80s. Repeat urine studies 10/10 w/ sg 1019 and uOsms 600. 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 for protein rich foods he can eat > food must be affordable, accessible, appealing to him >> target intake 90 gm protein daily NEPHRO D/C RECS (ASSUMING transfer to another IP facility) DX: euvolemic hyponatremia RX: -furosemide 40 mg IV q8h timed so as not to disturb sleep -urea 30 gm bid po -potassium 20 mEq bid -salt tablet 1 gm bid -do not d/c on sodium bicarbonate -continue daily po magnesium 250 mg daily OTHER POST D/C CARE: -suggest PCP or OP nephro in [place] or oncology follow BMP w/ magnesium q Mon, Thurs x 3 wks -continue fluid limit 1.5 L daily -target 90 gm daily protein intake -protein shakes do NOT count toward fluid limit -avoid nsaids -control nausea and pain, both of which can stimulate ADH release/worsen hyponatremia F/U APPTs: -he already follows w/ Dr Elizabeth Kemp, substance abuse clinician in [place] area; suggest post [facility] hospital d/c f/u appt w/ her 2-3 wks post [facility] d/c >>>>>NEPHRO D/C RECS (ASSUMING d/c home for close OP f/u) Same as above EXCEPT RX: -furosemide 80 mg 2 daily doses 4 hrs or more apart -NO urea -potassium, salt tabs, mag as above OTHER POST D/C CARE: -labs to be followed by/through PCP F/U APPTS: -suggest hospital d/c appt w/ Dr Kemp w/in 7-10 days of d/c (2) E coli bacteremia: Plan: on cipro; presented 10/04 w/ 07/24 + blood cxs; f/u cxs 10/09 NGTD (3) Acquired hyperbilirubinemia: Plan: T bili up to 10.3 today Admission and Anticipated Discharge Date Admission Date: October 04, 2024 Physical Exam Constitutional: well developed, well nourished and cooperative; no acute distress Eyes: EOM intact bilaterally; sclerae not anicteric ENMT: Mouth: + dry oral mucous membranes Respiratory: normal respiratory effort Auscultation: + diminished lung sounds Cardiovascular: RRR, no murmur, no edema Gastrointestinal (Abdomen): Inspection/Auscultation: normal bowel sounds Percussion/Palpation: + abdomen tender (RUQ to moderate palp) and abdomen soft; no guarding Musculoskeletal: Extremities: strength 5/5 throughout Skin: no rashes, warm and dry Results & Data Vital Signs (Past 12 Hours) Vital Signs Temp Pulse Resp BP Pulse Ox O2 Del Method 10/16/24 06:06 36.5 C 86 18 123/81 100 Room Air 10/15/24 19:27 37.0 C 107 H 16 134/78 98 Room Air
[2024-10-16 08:27] LABS: Hemoglobin 7.9 g/dl (14.0-18.0); Mean Corpuscular Hemoglobin 27.2 pg (25.0-34.0); Mean Corpuscular Hgb Conc 34.3 g/dL (32.0-36.0); Mean Corpuscular Volume 79.3 fL (80.0-100.0); Mean Platelet Volume 10.1 fL (9.4-12.4); Platelet Count 391 K/uL (130-400); RDW Coefficient of Variation 17.4 % (11.5-14.5); RDW Standard Deviation 49.9 fL (36.4-46.3); White Blood Count 5.78 K/ul (4.8-10.8)
[2024-10-16 08:42] LABS: Albumin Level 3.2 gm/dl (3.4-5.0); BUN Creatinine Ratio 19.5 (10-20); Bilirubin Direct 6.5 mg/dl (0-0.2); Bilirubin,Total 10.7 mg/dl (0.2-1.0); Calcium 9.4 mg/dl (8.6-10.3); Creatinine Clr Calc Pharmacy 71.8 ml/min; Potassium 3.9 mmol/L (3.5-5.1)
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
== END 2024-10-16 10:25 | disposition short-term general hospital (02) | DRG 552 ==
LOC: ED 19:37 → 2S 23:28 → SUATTDRO 23:28 → 2S 10-05 02:07 → 3W 10-05 16:15